=== PATIENT | male | born 2000 | race African-American/Black ===

== ENCOUNTER 2018-03-21 12:39 | Emergency (ER) | payer OTHER ==
[~2018-03-21] VITALS: Ht 170.2 cm; Wt 59.0 kg
[2018-03-21 14:17] VITALS: BP 126/66
== END 2018-03-21 14:17 | disposition home or self-care (01) ==
LOC: ER 12:39
DX: S61.213A Laceration without foreign body of left middle finger without damage to nail, initial encounter (principal); W26.0XXA Contact with knife, initial encounter; Y92.000 Kitchen of unspecified non-institutional (private) residence as the place of occurrence of the external cause; Y93.G1 Activity, food preparation and clean up; Y99.8 Other external cause status